=== PATIENT | male | born 1995 | race Two or more races ===

== ENCOUNTER 2022-10-24 03:21 | Emergency (ER) | payer MEDICAID ==
[~2022-10-24] VITALS: Ht 177.8 cm; Wt 116.0 kg
[2022-10-24 03:30] VITALS: BP 141/74; PULSE 90; RESP 18; TEMP 98.2; O2SAT 99
[2022-10-24] MEDS ORDERED: ASPIRIN 81MG TABLET PO ONE (04:00)
[2022-10-24] MEDS ORDERED: NITROGLYCERIN 0.4MG TABLET SL SL PRN (04:00)
[2022-10-24 04:40] LABS: BASOPHILS % 0.6 % (0.0-2.0); EOSINOPHILS % 2.3 % (0.0-5.0); HEMATOCRIT. 41.9 % (42.0-52.0); HEMOGLOBIN. 13.9 g/dL (14.0-18.0); LYMPHOCYTES % 26.4 % (20.0-50.0); MEAN CORPUSCULAR HEMOGLOBIN 28.2 pg (28.0-32.0); MEAN CORPUSCULAR VOLUME 84.9 fL (80.0-94.0); MEAN PLATELET VOLUME 8.7 fl (7.4-10.4); MONOCYTES % 7.2 % (2.0-8.0); NEUTROPHILS % 63.5 % (40.0-76.0); PLATELET 208 x1000/uL (130-400); RED BLOOD CELL COUNT 4.93 mill/uL (4.7-6.1)
[2022-10-24 05:00] LABS: CHLORIDE 111 mEq/L (98-107)
== END 2022-10-24 06:22 | disposition home or self-care (01) ==
LOC: ER 03:21
DX: R07.89 Other chest pain (principal)
CPT/HCPCS: 36415; 71045; 80053; 83880; 84484; 85025; 93005; 99285